=== PATIENT | female | born 1985 | race Caucasian/White ===

== ENCOUNTER 2017-06-27 15:38 | Outpatient (CLI) | payer BC ==
[~2017-06-27 15:38] MED LIST: MTR600X PO; PRENTAB26 PO
[2017-06-27] MEDS ORDERED: ACETAMINOPHEN 325 MG TAB PO PRN (17:45)
== END 2017-06-27 18:30 | disposition home or self-care (01) ==
LOC: C.LD 15:38 → C.OPB 15:38
PROVIDERS: ATTEND Obstetrics & Gynecology
DX: O62.9 Abnormality of forces of labor, unspecified (principal); Z3A.39 39 weeks gestation of pregnancy

== ENCOUNTER 2017-07-04 00:19 | Inpatient (IN) | payer BC ==
[~2017-07-04] VITALS: Ht 170.2 cm; Wt 93.6 kg
[~2017-07-04 00:19] MED LIST changes: -MTR600X PO
[2017-07-07] MEDS ORDERED: LACTATED RINGER'S 1000ML 1,000 ML IV PRN (08:04)
[2017-07-07] MEDS ORDERED: LACTATED RINGER'S 1000ML 500 ML IV PRN ×2 (08:05→13:17)
[2017-07-07 08:10] VITALS: Ht 170.2 cm; Wt 93.6 kg
[2017-07-07] MEDS ORDERED: OXYTOCIN 30 UNITS/500ML NSS IV PRN ×2 (08:15→15:15)
[2017-07-07 08:33] LABS: HEMATOCRIT 35.1 % (37-47); MEAN CELL VOLUME 91.4 fL (80-100); MEAN CORPUSCULAR HEMOGLOBIN 31.5 pg (25-34); MEAN CORPUSCULAR HGB CONC 34.5 g/dl (32-36); PLATELET COUNT 152 K/uL (130-400); RED BLOOD COUNT 3.84 M/uL (4.2-5.4); WHITE BLOOD COUNT 8.22 K/uL (4.8-10.8)
--- NOTE | 2017-07-07 08:39 | HISTORY & PHYSICAL EXAMINATION ---
DATE OF ADMISSION: 07/07/2017 CHIEF COMPLAINT: Scheduled induction of labor at term. HISTORY OF PRESENT ILLNESS: The patient is a 32-year-old -0-0-2 at 40 weeks and 3 days of gestation presenting for scheduled induction of labor for postdates. She feels well, no complaints, no contractions, leakage of fluid, or vaginal bleeding. She reports good movements. She denies headaches, change in her vision, nausea, vomiting, fever, chills, chest pain, shortness of breath. Her has been uncomplicated. PAST MEDICAL HISTORY: The patient denies any medical problems. Her test is positive for MRSA. No signs of infection. PAST SURGICAL HISTORY: LEEP of cervix x2. MEDICATIONS: vitamins. ALLERGIES: PENICILLIN CAUSES RASH. SOCIAL HISTORY: The patient denies smoking, alcohol or drug use. GYNECOLOGIC HISTORY: The patient denies any history of STDs including Chlamydia, gonorrhea, and herpes. She has history of a LEEP procedure x2, and her most recent Pap smear was normal. OB history: 2 full term 's LABORATORY DATA: Blood type is A positive, antibody screen negative, RPR nonreactive, hepatitis B surface antigen negative. H&H was 14/14, rubella titer positive, GC chlamydia cultures were negative. One hour Glucola was 70. Quad screen testing was negative. Repeat 1 hour Glucola was 78 and GBS culture was negative. PHYSICAL EXAMINATION: GENERAL: The patient is alert, oriented x3. She does not in acute distress. VITAL SIGNS: Stable. Afebrile. CARDIOVASCULAR SYSTEM: S1, S2, RRR. LUNGS: Clear to auscultation bilaterally. ABDOMEN: Soft, gravid, [place] 8 pounds. EXTREMITIES: Nontender, no edema. PELVIC: Cervix is 3-4 cm, 60% effaced, -2, vertex. heart rate 120s and reactive, good accelerations, no decelerations, moderate variability. [place], no contractions. ASSESSMENT AND PLAN: The patient is a 32-year-old 3, para 2-0-0-2 at 40 weeks and 3 weeks of gestation presenting for induction of labor at term with favorable cervix. Vital signs stable, afebrile. heart rate reassuring. GBS negative. Plan is admit her, start IV fluids, IV oxytocin and artificial rupture of membranes when able and continue to monitor and anticipate spontaneous vaginal delivery. MTDD
[2017-07-07] MEDS: LACTATED RINGER'S 1000ML 1,000 ML IV SCH ×2 (09:21→12:51)
[2017-07-07] MEDS ORDERED: EpHEDrine SULFATE INJ 50 MG/ML AMP ONE (12:20)
[2017-07-07] MEDS ORDERED: BUPIVACAINE 0.25% 30 ML VIAL ONE (12:20)
[2017-07-07] MEDS ORDERED: FENTANYL 2MCG/ML ROPIV 1.25MG/ML 100ML BAG EPI ONE (12:20)
[2017-07-07] MEDS: FENTANYL CITRATE INJ 50 MCG/1 ML 2 ML VIAL ONE ×2 (12:41→13:11)
[2017-07-07 13:12] LABS: ALT/SGPT 19 U/L (12-78); BLOOD UREA NITROGEN 8 mg/dl (7-18); BUN/CREATININE RATIO 15.8 (10-20); CALCIUM 8.8 mg/dl (8.5-10.1); CARBON DIOXIDE 21 mmol/L (21-32); CHLORIDE 105 mmol/L (98-107); GLUCOSE 79 mg/dl (70-99); POTASSIUM 3.9 mmol/L (3.5-5.1); SODIUM 136 mmol/L (136-145)
[2017-07-07 13:15] LABS: ALB/GLOB RATIO 0.6 (0.9-2); ALKALINE PHOSPHATASE 166 U/L (45-117); AST/SGOT 21 U/L (15-37)
[2017-07-07] MEDS ORDERED: NALOXONE HCL INJ 1 MG in SODIUM CHLORIDE 0.9% 1000ML 1,000 ML IV PRN (13:17)
[2017-07-07] MEDS ORDERED: EpHEDrine SULFATE INJ 50 MG/ML AMP IV PRN (13:30)
[2017-07-07] MEDS ORDERED: NALBUPHINE HCL INJ 10 MG/ML AMP IV PRN (13:30)
[2017-07-07] MEDS ORDERED: DiphenhydrAMINE HCL 50 MG/ML VIAL IV PRN (13:30)
[2017-07-07] MEDS ORDERED: FENTANYL 2MCG/ML ROPIV 1.25MG/ML 100ML BAG EPI PRN (13:30)
[2017-07-07] MEDS ORDERED: NALOXONE HCL INJ 0.4 MG/1 ML VIAL/CARP IV PRN (13:30)
[2017-07-07] MEDS ORDERED: ONDANSETRON INJ 2 MG/ML 2 ML VIAL IV PRN (13:30)
[2017-07-07] MEDS ORDERED: PROMETHAZINE HCL INJ 6.25 MG in SODIUM CHLORIDE 0.9% 50ML 50 ML IV PRN (13:30)
[2017-07-07] MEDS ORDERED: DIPHTHERIA/TETANUS/PERTUSSIS 0.5 ML SYR/VIAL IM. ONE (15:15)
[2017-07-07] MEDS ORDERED: LANOLIN OINT EXT PRN ×2 (15:15)
[2017-07-07] MEDS ORDERED: BENZOCAINE 20% AER SPR 82.5 GM CAN EXT PRN (15:15)
[2017-07-07] MEDS ORDERED: ACETAMINOPHEN 325 MG TAB PO PRN (15:15)
[2017-07-07] MEDS ORDERED: HYDROCORTISONE ACETATE 25 MG SUPP PR PRN (15:15)
[2017-07-07] MEDS ORDERED: OXYCODONE/ACETAMINOPHEN 5-325 TAB PO PRN (15:15)
[2017-07-07] MEDS ORDERED: SUPERCREAM 0.870 % 15GM JAR EXT PRN (15:15)
[2017-07-07] MEDS: IBUPROFEN 600 MG TAB PO PRN ×2 (16:12→23:39)
--- NOTE | 2017-07-07 17:25 | DELIVERY SUMMARY ---
DATE OF OPERATION: 07/07/2017 TIME OF DELIVERY OF BABY: 1448 p.m. TIME OF DELIVERY OF PLACENTA: 1456 p.m. DETAILS OF DELIVERY: The patient was found to be fully dilated and desired to push. She pushed through only 2 contractions and delivered the head without difficulty. Shoulders were delivered with minimal traction. The baby was delivered and brought to the mother's chest, where mouth and nose were suctioned and cord was clamped x2 and cut at 1 minute. Then cord blood was obtained. Perineum and vagina were checked for lacerations. There were no lacerations found in the vagina or perineum. Placenta was found to be in the vagina, delivered spontaneously, was intact and complete. Uterus was explored and found to be empty. Lower segment was cleared of all clots and debris. Fundus was firm. EBL was 300. Mom and baby tolerated the procedure well. Baby was a viable female infant. Apgars 8/9, weight is 3999gr. No complications happened and I was present during the whole procedure. At the end of procedure, sponge, instrument count was correct x2. I attest to the content of the Intraoperative Record and any orders documented therein. Any exceptions are noted below. MTDD
--- NOTE | 2017-07-07 17:44 | Anesthesiology Progress Note ---
Anesthesia Post Op Note Date & Time Jul 07, 2017 at 17:44 Vital Signs Pain Intensity: 6.0 Notes Mental Status: alert / awake / arousable, participated in evaluation Pt Amnestic to Procedure: Yes Nausea / Vomiting: adequately controlled Pain: adequately controlled Airway Patency, RR, SpO2: stable & adequate BP & HR: stable & adequate Hydration State: stable & adequate Neuraxial Anesthesia: was administered, sensory block is resolving Anesthetic Complications: no major complications apparent
[2017-07-07 18:00] VITALS: BP 140/88; PULSE 84
[2017-07-07 19:30] VITALS: BP 134/89; PULSE 96; TEMP 37.2; O2SAT 99
--- NOTE | 2017-07-07 20:44 | Anesthesiology Progress Note ---
Anesthesia Post Op Note Date & Time Jul 07, 2017 at 20:43 Vital Signs Pain Intensity: 0.0 Vital Signs Past 12 Hours Date Time Temp Pulse Resp B/P (MAP) Pulse Ox O2 Delivery O2 Flow Rate FiO2 07/07/17 19:30 Room Air 07/07/17 19:30 37.2 96 16 134/89 (104) 99 Room Air 07/07/17 18:00 Room Air 07/07/17 18:00 84 18 140/88 (105) Room Air Notes Mental Status: alert / awake / arousable, participated in evaluation Pt Amnestic to Procedure: Yes Nausea / Vomiting: adequately controlled Pain: adequately controlled Airway Patency, RR, SpO2: stable & adequate BP & HR: stable & adequate Hydration State: stable & adequate Neuraxial Anesthesia: was administered, sensory block is resolving Anesthetic Complications: no major complications apparent
[2017-07-07] MEDS: DOCUSATE SODIUM 100 MG CAP PO SCH (20:53)
[2017-07-07 23:30] VITALS: BP 124/83; PULSE 80; TEMP 37.1; O2SAT 99
[2017-07-08] MEDS: IBUPROFEN 600 MG TAB PO PRN ×3 (03:52→16:14)
[2017-07-08 03:53] VITALS: BP 143/85; PULSE 84; TEMP 36.9; O2SAT 100
[2017-07-08 06:21] LABS: HEMATOCRIT 32.3 % (37-47)
[2017-07-08 07:35] VITALS: BP 137/97; PULSE 94; TEMP 36.7; O2SAT 99
[2017-07-08] MEDS ORDERED: FERROUS SULFATE 325 MG TAB PO SCH (08:00)
[2017-07-08] MEDS ORDERED: PRENATAL VITAMIN TAB PO SCH (08:00)
[2017-07-08] MEDS: DOCUSATE SODIUM 100 MG CAP PO SCH (08:31)
[2017-07-08] MEDS ORDERED: MTR600X PO (10:13)
--- NOTE | 2017-07-08 10:33 | OB/GYN Progress Note ---
[facility] Progress Note Date of Service Jul 08, 2017. Subjective conversation w/ patient, physical exam Ambulation: ambulating normally Voiding: no voiding problems Passing Gas: Yes Diet Tolerance: Regular Diet Lochia: Small Feeding Type: Breast Feeding Objective Vital Signs Date Time Temp Pulse Resp B/P (MAP) Pulse Ox O2 Delivery O2 Flow Rate FiO2 07/08/17 07:35 36.7 94 20 137/97 (110) 99 Room Air 07/08/17 07:35 99 Room Air 07/08/17 03:53 36.9 84 20 143/85 (104) 100 Room Air 07/07/17 23:30 37.1 80 20 124/83 (97) 99 Room Air 07/07/17 23:30 Room Air 07/07/17 19:30 Room Air 07/07/17 19:30 37.2 96 16 134/89 (104) 99 Room Air 07/07/17 18:00 Room Air 07/07/17 18:00 84 18 140/88 (105) Room Air Physical Exam General Appearance: WELL-APPEARING, NO APPARENT DISTRESS Abdomen: non tender, soft Fundus: Firm Extremities: non-tender, normal inspection, no pedal edema Laboratory Results Last 24 Hours Test 07/07/17 12:39 07/08/17 06:02 Sodium Level 136 mmol/L Potassium Level 3.9 mmol/L Chloride Level 105 mmol/L Carbon Dioxide Level 21 mmol/L Anion Gap 10.0 mmol/L Blood Urea Nitrogen 8 mg/dl Creatinine 0.50 mg/dl Est Creatinine Clear Calc Drug Dose 193.3 ml/min Estimated GFR () > 150.0 Estimated GFR (Non- 129.9 BUN/Creatinine Ratio 15.8 Random Glucose 79 mg/dl Calcium Level 8.8 mg/dl Total Bilirubin 0.2 mg/dl Aspartate Amino Transf (AST/SGOT) 21 U/L Alanine Aminotransferase (ALT/SGPT) 19 U/L Alkaline Phosphatase 166 U/L Lactate Dehydrogenase 232 U/L Total Protein 6.3 gm/dl Albumin 2.4 gm/dl Globulin 3.9 gm/dl Albumin/Globulin Ratio 0.6 Hemoglobin 10.8 g/dL Hematocrit 32.3 % Assessment and Plan Post- Day Number: 1 Continue Routine Care: discharged
[2017-07-08 13:05] VITALS: BP 129/86; PULSE 85; TEMP 36.7; O2SAT 99
[2017-07-08 15:41] VITALS: BP_DIAS 86; PULSE 85; TEMP 36.7
[2017-07-08] MEDS ORDERED: BISACODYL 5 MG TABEC PO SCH (20:00)
[2017-07-09] MEDS ORDERED: BISACODYL 10 MG SUPP PR PRN (07:00)
== END 2017-07-08 16:20 | disposition home or self-care (01) | DRG 775 ==
LOC: UNDOADMIN 07-07 07:33 → C.LD 07-07 07:33 → C.OBG 07-07 18:11
PROVIDERS: ADMIT Obstetrics & Gynecology; ATTEND Obstetrics & Gynecology
PROC: 10E0XZZ Delivery of Products of Conception, External Approach (ICD-10-PCS; principal; 2017-07-07)
PROC: 3E0P7GC Introduction of Other Therapeutic Substance into Female Reproductive, Via Natural or Artificial Opening (ICD-10-PCS; 2017-07-07)
DX: O48.0 Post-term pregnancy (principal); Z37.0 Single live birth; Z3A.40 40 weeks gestation of pregnancy; Z88.0 Allergy status to penicillin

== ENCOUNTER 2017-07-06 12:59 | Outpatient (CLI) | payer BC ==
[~2017-07-06] VITALS: Ht 170.2 cm; Wt 93.6 kg
[2017-07-06 14:03] VITALS: Ht 170.2 cm; Wt 93.6 kg
[2017-07-08] MEDS ORDERED: MTR600X PO (10:13)
--- NOTE | 2017-07-16 12:27 | EDITING REQUIRED CODING QUERY ---
DIAGNOSIS NEEDED To promote full compliance with coding requirements relating to patient care, physician participation is requested in all cases of forensic engineer uncertainty. Please assist us with the question(s) below: Coding Question: The patient received care in labor and delivery on 07/06/17 as noted within the record. Please document the diagnosis that is being addressed by the medication/treatment. Provider Response: DIAGNOSIS: rule out labor WEEKS GESTATION: 38 Thank you for your assistance, Ene Nunes - Flume Tender
== END 2017-07-06 14:00 | disposition home or self-care (01) ==
LOC: C.LD 12:59 → C.OPB 12:59
PROVIDERS: ATTEND Obstetrics & Gynecology
DX: Z34.83 Encounter for supervision of other normal pregnancy, third trimester (principal)